=== PATIENT | male | born 1970 | race Caucasian/White ===

== ENCOUNTER 2025-09-21 14:51 | Outpatient (AMB) | payer OTHER, SELFPAY ==
--- NOTE | 2025-09-21 14:56 | MHC.OFFVIS ---
Vital Signs 09/21/25 14:59 Height 5 ft 10 in Weight 345 lb BMI 49.5 BP 116/80 Blood Pressure Location Rt brachial Respiration 16 Pulse 88 Pulse Oximetry (%) 98 Oxygen Delivery Method Room Air Intake Visit Reasons: 6m prev [facility] patient concussion/headache Allergies No Known Allergies Allergy (Verified 09/21/25 15:08) Medication List - Last Reconciled 09/21/25 by Jessica Masterson CNP amitriptyline 100 mg PO BEDTIME 90 days amlodipine 10 mg PO DAILY aspirin 81 mg PO DAILY atorvastatin 20 mg PO DAILY empagliflozin (Jardiance) 10 mg PO DAILY galcanezumab-gnlm (Emgality Pen) 120 mg subcut QMONTH sumatriptan succinate 100 mg PO DAILY tirzepatide (Mounjaro) 7.5 mg subcut QWEEK topiramate 100 mg (2 x 50 mg) PO BID 30 days HPI Comments Details: Ilan is a 55-year-old male patient who follows in the clinic for headache. According to Ilan, he had a head injury approximately 6 years ago after tripping on a box leaving his house. He fell forward hitting his head on a basketball pole and then hit his head on cement. He denies loss of consciousness at the time though after the event had difficulty standing and imbalance. He went to the emergency room for evaluation in the overall impression by the provider who saw him was that he had a concussion. He was out of work for approximately 3 months after the event and continued to have significant light and sound sensitivity as well as dizziness with occasional vomiting. Prior to his fall about 6 years ago, he did not have any headaches. He notes that he has had several concussions over the years even prior to this. He experiences some forgetfulness and cognitive slowing and he relies on notes heavily. He also notes that he has some mood changes especially when his headaches are more severe noted that he is very irritable and becomes very easily agitated because of his pain. He has been on topiramate 100 mg twice daily for many years and has also been taking amitriptyline 100 mg nightly for quite some time as well. He does note that without the amitriptyline he has significant difficulty sleeping. He does have a long history of insomnia. He also has a history of VAL. He was diagnosed with a SA at approximately age 18. He has been getting his CPAP equipment on [employer] and has not had any formal sleep study since approximately age 18. He tells me that he drinks plenty of water and avoids alcohol or other substances. He does not smoke tobacco. Currently headaches are weekly lasting 4-6hours starting with neck pain and then escalating into pain in his fontal region. His pain is archie, dull, aching, and throbbing and is associated with nausea, light, and sound sensitivity. Headaches often arise when he is very busy at work. Past workup: CT brain -normal EEG 2023- normal EEG 2022- Mild bilateral sharp theta discharges His primary care provider recently started him on Emgality injections. He reports that since starting on the Emgality approximately 2 months ago, he has experienced a near 75% reduction in his headaches. He does continue on the topiramate 100 mg twice daily and amitriptyline 100 mg nightly as well. He again reiterates how he feels that during the day he has cognitive slowing and difficulty with concentrating especially at work. Physical Exam Vital Signs: Last Vital Signs Pulse 88 09/21/25 14:59 Resp 16 09/21/25 14:59 BP 116/80 09/21/25 14:59 Pulse Ox 98 09/21/25 14:59 Oxygen Delivery Method Room Air 09/21/25 14:59 BMI result Body Mass Index 49.5 Assessment & Plan Assessment & Plan (1) Migraine without aura and without status migrainosus, not intractable: Code(s): G43.009 - Migraine without aura, not intractable, without status migrainosus Category: Medical (2) Post concussion syndrome: Code(s): F07.81 - Postconcussional syndrome Category: Medical (3) Post-concussion headache: Code(s): G44.309 - Post-traumatic headache, unspecified, not intractable Category: Medical Plan Ilan is a 55-year-old male patient who follows in the clinic for headache in presumed postconcussive syndrome. He has been managed on topiramate 100 mg twice daily and amitriptyline 100 mg nightly for many years but without substantial improvements in his headaches. More recently, primary care started him on Emgality injections and he is seen a near 75% improvement in his headaches since starting. He does still continue on topiramate 100 mg twice daily and amitriptyline 100 mg nightly. He does note that the amitriptyline helps him to sleep. I am however concerned that the topiramate is playing a role in his cognitive slowing and difficulty concentrating. He may at this point also not require these high doses of topiramate especially if Emgality is working well. We will slowly taper down on his topiramate to a goal dose of 50 mg in the morning and 100 mg in the evening until his next visit. I would ultimately like to see him off of the topiramate entirely though we will accomplish this slowly because he has been on it for many years. We also discussed consideration of a repeat sleep study as he has not had 1 since age 18 and also we discussed potentially utilization of physical therapy techniques which may benefit his headaches as well. -Continue Emgality -taper topiramate slowly to a goal dose of 50mg am and 100mg pm until nect visit -consider repeat sleep study and PT -Follow-up in 1 month Medications: New topiramate 100 mg (2 x 50 mg) PO BID 120 tabs 5RF 30 days Coding Level of Care Code Est Pt Level 4 (43367) Diagnoses Migraine without aura and without status migrainosus, not intractable G43.009 Post concussion syndrome F07.81 Post-concussion headache G44.309
[2025-09-21 14:59] VITALS: BP 116/80; PULSE 88; RESP 16; O2SAT 98; BMI 49.5
--- OUTSIDE RECORDS SUMMARY | 2025-09-21 19:15 | XMS_ITS | Clinical Summary ---
Author Organization [facility] Address [address] [place] [phone] Phone Care Team Providers Care Engineering Technologist Name Role Phone Blossom Coreas MD Primary Care Provider [phone] Allergies Active Allergy Reactions Criticality Noted Date Comments Cephalexin 10/09/2020 Lisinopril 02/25/2025 Tomato 02/25/2025 Medications No known medications Medical History Medical History Date Comments Hypertension DX:Hypertension Sleep apnea DX:Sleep apnea Calculus of kidney DX:Calculus o f kidney Concussion DX:Concussion Elevated random blood glucose level DX:Elevated random blood glucose level Cervical strain DX:Cervical stra in Left knee DJD DX:Left knee DJD Diverticulitis DX:Diverticuliti s Sleep apnea DX:Sleep apnea Venous insufficiency DX:Venous i nsufficiency Social History Tobacco Use Types Packs/Day Years Used Date Smoking Tobacco: Never Smokeless Tobacco: Never Alcohol Use Standard Drinks/Week Comments No 0 (1 standard drink = 0.6 oz pur e alcohol) Sex and Gender Information Value Date Recorded Sex Assigned at Male 02/25/2025 10:55 AM EDT Legal Sex Male 7:57 PM EST Gender Identity Male 02/25/2025 10:55 AM EDT Sexual Orientation Straight 02/25/2025 10 :55 AM EDT Obstetrics History Last Filed Vital Signs Vital Sign Reading Time Taken Comments Blood Pressure 151/86 03/22/2025 9:53 PM EDT Pulse 83 03/22/2025 9:53 PM EDT Temperature 37 C (98.6 F) 03/22/2025 5:59 PM EDT Respiratory Rate 20 03/22/2025 9:53 PM EDT Oxygen Saturation 95% 03/22/2025 9:53 PM EDT Inhaled Oxygen Concentration - - Weight 161 kg (354 lb) 03/22/2025 5:59 PM EDT Height 177.8 cm (5' 10 ) 03/22/2025 5:59 PM EDT Body Mass Index 50.79 03/22/2025 5:59 PM EDT Plan of Treatment Health Maintenance Due Date Last Done Comments Colorectal Cancer Screening: Colonoscopy 1970 DTaP,Tdap,and Td Vaccines (1 - Tdap) 1989 Hepatitis B Vaccines (1 of 3 - 19+ 3-dose series) 1989 Pneumococcal Vaccine: 50+ Years (1 of 1 - PCV) 2020 RSV Immunization Adult Patients (1 - Risk 50-74 years 1-dose series) 2020 Zoster Vaccines (1 of 2) 2020 Cholesterol Screening (Lipid Panel) 10/26/2022 HIV Screening 10/26/2022 Hepatitis C Screening 10/26/2022 Social Influencers of Health Screening 10/26/2022 Depression Screening 11/24/2024 COVID-19 Vaccine (4 - 2024-2 6 season) 2025 11/10/2021, 01/08/2021, 12/13/2020 Influenza Vaccine (#1) 2025 3, 10/17/2021 HIB Vaccines Aged Out No longer eligi ble based on patient's age to complete this topic HPV Vaccines Aged Out No longer eligi ble based on patient's age to complete this topic Hepatitis A Vaccines Aged Out No long er eligible based on patient's age to complete this topic IPV Vaccines Aged Out No longer eligi ble based on patient's age to complete this topic MMR Vaccines Aged Out No longer eligi ble based on patient's age to complete this topic Meningococcal ACWY Vaccine Aged Out N o longer eligible based on patient's age to complete this topic Meningococcal B Vaccine Aged Out No l onger eligible based on patient's age to complete this topic RSV Immunization Patients Under 20 months Aged Out No longer eligible b ased on patient's age to complete this topic Varicella Vaccines Aged Out No longer eligible based on patient's age to complete this topic Insurance [facility] Advance Directives Documents on File Type Date Recorded Patient Emergency Medical Service Manager Expl anation Health Care Decision (hx) 11/30/2014 AD SINCLAIR DIRECTIVE Health Care Decision (hx) 11/30/2014 AD SINCLAIR DIRECTIVE Health Care Decision (hx) 11/30/2014 AD SINCLAIR DIRECTIVE Health Care Decision (hx) 11/30/2014 AD SINCLAIR DIRECTIVE Health Care Decision (hx) 11/30/2014 AD SINCLAIR DIRECTIVE Health Care Decision (hx) 11/30/2014 AD SINCLAIR DIRECTIVE Health Care Decision (hx) 11/30/2014 AD SINCLAIR DIRECTIVE Health Care Decision (hx) 11/30/2014 AD SINCLAIR DIRECTIVE Health Care Decision (hx) 11/30/2014 AD SINCLAIR DIRECTIVE Health Care Decision (hx) 11/30/2014 AD SINCLAIR DIRECTIVE Health Care Decision (hx) 11/30/2014 AD SINCLAIR DIRECTIVE Health Care Decision (hx) 11/25/2014 AD SINCLAIR DIRECTIVE Health Care Decision (hx) 11/25/2014 AD SINCLAIR DIRECTIVE Health Care Decision (hx) 11/25/2014 AD SINCLAIR DIRECTIVE Health Care Decision (hx) 11/25/2014 AD SINCLAIR DIRECTIVE Health Care Decision (hx) 11/25/2014 AD SINCLAIR DIRECTIVE Health Care Decision (hx) 11/25/2014 AD SINCLAIR DIRECTIVE Health Care Decision (hx) 11/25/2014 AD SINCLAIR DIRECTIVE Health Care Decision (hx) 11/25/2014 AD SINCLAIR DIRECTIVE Health Care Decision (hx) 11/25/2014 AD SINCLAIR DIRECTIVE Health Care Decision (hx) 11/25/2014 AD SINCLAIR DIRECTIVE Health Care Decision (hx) 11/25/2014 AD SINCLAIR DIRECTIVE Care Teams Engineering Technologist Relationship Specialty Start Date End Date Blossom Coreas MD [address] [place] [address] [place] [address] [facility] - General 01/20/24
--- OUTSIDE RECORDS SUMMARY | 2025-09-21 19:16 | XMS_ITS | Patient Health Record ---
[facility] Address [address] [place] [address] Care Team Providers Care Process Coach Name Role Phone SHOLA COREAS Unavailable [phone] ANDRAE YANEZ Unavailable [phone] Allergies Allergen (clinical drug ingredient) Drug/Non Drug Allergy documented on EMR Reaction Allergy Type Onset Date Status lisinopril Lisinopril angioedema Drug Allergy Acti ve doxycycline Doxycycline rash Drug Allergy Act ravinder Results Component Value Reference Range Notes EKG Reviewed date:09/09/2025 12:13:17 PM Interpretation: Performing Lab: Notes/Report: ECGDiastolicBP 72 ECGHr 68 ECGPRInterval 164 ECGPWaveAxis 46 ECGQRSDuration 86 ECGQrsWaveAxis 37 ECGQTcInterval 384 ECGQTInterval 370 ECGSystolicBP 130 ECGTWaveAxis 42 RR_DiastolicBP 0 RR_MaxRRInterval 0 RR_MeanHR 0 RR_MeanRRInterval 0 RR_MinRRInterval 0 RR_NumBeats 0 RR_NumNormalBeats 0 RR_SystolicBP 0 B-TYPE NATRIURETIC PEPTIDE Reviewed date:03/23/2025 08:36:05 AM Interpretation: Performing Lab: Notes/Report: BNP 8 <=100 pcg/mL Urinalysis, Complete-[id number] Reviewed date:02/23/2025 08:08:09 AM Interpretation: Performing Lab:[facility], [address] [facility], [place], Phone - [phone], Director - Mark Notes/Report: Specific Graff 1.027 1.005-1.030 pH 6.5 5.0-7.5 Urine-Color Yellow Yellow Appearance Clear Clear WBC Esterase Negative Negative Protein Trace Negative/Trace Glucose 3+ Negative Ketones Negative Negative Occult Blood 2+ Negative Bilirubin Negative Negative Urobilinogen,Semi-Qn 1.0 0.2-1.0 mg/dL Nitrite, Urine Negative Negative Microscopic Examination See below: Micr oscopic was indicated and was performed. WBC None seen 0 - 5 /hpf RBC >30 0 - 2 /hpf Epithelial Cells (non renal) None seen 0 - 10 /hpf Casts None seen None seen /lpf Bacteria None seen None seen/Few PSA Total+% Free-[id number] Reviewed date:02/22/2025 08:14:00 AM Interpretation: Performing Lab:[facility], [address] [facility], [place], Phone - [phone], Director - Mark Notes/Report: Prostate Specific Ag 3.0 0.0-4.0 ng/mL [facility]idan ECLIA methodology. . According to the [place] [employer], Serum PSA should decrease and remain at undetectable levels after radical prostatectomy. The AUA defines biochemical recurrence as an initial PSA value 0.2 ng/mL or greater followed by a subsequent confirmatory PSA value 0.2 ng/mL or greater. Values obtained with different assay methods or kits cannot be used interchangeably. Results cannot be interpreted as absolute evidence of the presence or absence of malignant disease. PSA, Free 0.67 N/A ng/mL Aidan ECLIA met hodology. % Free PSA 22.3 The table below lists the probability of prostate cancer for men with non-suspicious RM results and total PSA between 4 and 10 ng/mL, by patient age (Steffanie et al, HEATHER 1998, 279:1542). % Free PSA 50-64 yr 65-75 yr 0.00-10.00% 56% 55% 10.01-15.00% 24% 35% 15.01-20.00% 17% 23% 20.01-25.00% 10% 20% >25.00% 5% 9% Please note: Steffnaie et al did not make specific recommendations regarding the use of percent free PSA for any other population of men. Comp. Metabolic Panel (14)-3 [id number] Reviewed date:02/22/2025 08:14:00 AM Interpretation: Performing Lab:[facility], [address] [facility], Phone - [phone], Director - Mark Notes/Report: Glucose 151 70-99 mg/dL BUN 12 6-24 mg/dL Creatinine 1.14 0.76-1.27 mg/dL eGFR 76 >59 mL/min/1.73 BUN/Creatinine Ratio 11 9-20 Sodium 142 134-144 mmol/L Potassium 3.8 3.5-5.2 mmol/L Chloride 104 96-106 mmol/L Carbon Dioxide, Total 22 20-29 mmol/L Calcium 9.3 8.7-10.2 mg/dL Protein, Total 7.1 6.0-8.5 g/dL Albumin 4.4 3.8-4.9 g/dL Globulin, Total 2.7 1.5-4.5 g/dL Bilirubin, Total 0.8 0.0-1.2 mg/dL Alkaline Phosphatase 109 44-121 IU/L AST (SGOT) 16 0-40 IU/L ALT (SGPT) 20 0-44 IU/L Lipid Panel-[id number] Reviewed date:02/22/2025 08:14:00 AM Interpretation: Performing Lab:[facility], [address] [facility], Phone - [phone], Director - Mark Notes/Report: Cholesterol, Total 122 100-199 mg/dL Triglycerides 71 0-149 mg/dL HDL Cholesterol 54 >39 mg/dL VLDL Cholesterol Basil 15 5-40 mg/dL LDL Chol Calc (NIH) 53 0-99 mg/dL Vitamin D, 86-Bueiihz-[id number] Reviewed date:02/22/2025 08:12:34 AM Interpretation: Performing Lab:[facility], [address] [facility], Phone - [phone], Director - Mark Notes/Report: Vitamin D, 25-Hydroxy 21.1 30.0-100.0 ng/mL Vitamin D deficiency has been defined by the [place] of Medicine and an Endocrine Society practice guideline as a level of serum 25-OH vitamin D less than 20 ng/mL (1,2). The Endocrine Society went on to further define vitamin D insufficiency as a level between 21 and 29 ng/mL (2). 1. IOM ([place] of Medicine). 2010. Dietary reference intakes for calcium and D. [place]: The National Academies Press. 2. Josseline MUNOZ, Oscar HERNÁNDEZ, Marifer CANO, et al. Evaluation, treatment, and prevention of vitamin D deficiency: an Endocrine Society clinical practice guideline. JCEM. 2010; 96(5):1911-30. CBC With Differential/Platel et-[id number] Reviewed date:02/22/2025 08:12:44 AM Interpretation: Performing Lab:[facility] [place], [address] [place] [address], Phone - [phone], Director - Mark Notes/Report: WBC 7.1 3.4-10.8 x10E3/uL RBC 5.48 4.14-5.80 x10E6/uL Hemoglobin 16.1 13.0-17.7 g/dL Hematocrit 47.5 37.5-51.0 % MCV 87 79-97 fL MCH 29.4 26.6-33.0 pg MCHC 33.9 31.5-35.7 g/dL RDW 13.4 11.6-15.4 % Platelets 256 150-450 x10E3/uL Neutrophils 73 Not Estab. % Lymphs 18 Not Estab. % Monocytes 6 Not Estab. % Eos 2 Not Estab. % Basos 1 Not Estab. % Neutrophils (Absolute) 5.2 1.4-7.0 x10E3/uL Lymphs (Absolute) 1.3 0.7-3.1 x10E3/uL Monocytes(Absolute) 0.4 0.1-0.9 x10E3/uL Eos (Absolute) 0.2 0.0-0.4 x10E3/uL Baso (Absolute) 0.1 0.0-0.2 x10E3/uL Immature Granulocytes 0 Not Estab. % Immature Grans (Abs) 0.0 0.0-0.1 x10E3/uL TSH-[id number] Reviewed date:02/22/2025 08:14:00 AM Interpretation: Performing Lab:[facility], [address] [place] [address], [place], Phone - [phone], Director - Mark Notes/Report: TSH 0.986 0.450-4.500 uIU/mL Urinalysis, Complete-[id number] Reviewed date:02/22/2025 08:14:00 AM Interpretation: Performing Lab:[facility], [address] [place] [address], [place], Phone - [phone], Director - [facility] Notes/Report: Specific Graff TNP Test not performed. Patient was unable to provide a self-collected specimen for the requested testing. The following test(s) were not performed: pH TNP Test not perfor med Protein TNP Test not perfor med Glucose TNP Test not perfor med Ketones TNP Test not perfor med Vitamin [id number] Reviewed date:02/22/2025 08:14:00 AM Interpretation: Performing Lab:[facility], [address] [place] [address], Phone - [phone], Director - [facility] Notes/Report: Vitamin B12 014 087-5884 pg/mL Request Problem TNP Test not performed. Patient was unable to provide a self-collected specimen for the requested testing. The following test(s) were not performed: TEST: [id number] Urinalysis, Complete Hemoglobin [id number] Reviewed date:02/22/2025 08:12:39 AM Interpretation: Performing Lab:[facility], [address] [place] [address], Phone - [phone], Director - [facility] Notes/Report: Hemoglobin A1c 6.5 4.8-5.6 % . Prediabetes: 5.7 - 6.4 Diabetes: >6.4 Glycemic control for adults with diabetes: <7.0 Comp. Metabolic Panel (14)-3 Reviewed date:08/29/2025 08:03:53 AM Interpretation: Performing Lab:[facility], [address] [place] [address], Phone - [phone], Director - [facility] Notes/Report: Glucose 162 70-99 mg/dL BUN 12 6-24 mg/dL Creatinine 1.16 0.76-1.27 mg/dL eGFR 74 >59 mL/min/1.73 BUN/Creatinine Ratio 10 9-20 Sodium 142 134-144 mmol/L Potassium 4.1 3.5-5.2 mmol/L Chloride 107 96-106 mmol/L Carbon Dioxide, Total 22 20-29 mmol/L Calcium 9.1 8.7-10.2 mg/dL Protein, Total 6.5 6.0-8.5 g/dL Albumin 4.2 3.8-4.9 g/dL Globulin, Total 2.3 1.5-4.5 g/dL Bilirubin, Total 0.6 0.0-1.2 mg/dL Alkaline Phosphatase 117 47-123 IU/L AST (SGOT) 16 0-40 IU/L ALT (SGPT) 16 0-44 IU/L Lipid Panel-[id number] Reviewed date:08/29/2025 08:04:03 AM Interpretation: Performing Lab:[facility], Phone - [phone], Director - Mark Notes/Report: Cholesterol, Total 122 100-199 mg/dL Triglycerides 64 0-149 mg/dL HDL Cholesterol 57 >39 mg/dL VLDL Cholesterol Basil 14 5-40 mg/dL LDL Chol Calc (NIH) 51 0-99 mg/dL TSH+Free [id number] Reviewed date:08/29/2025 08:04:03 AM Interpretation: Performing Lab:[facility], Phone - [phone], Director - Mark Notes/Report: TSH 0.976 0.450-4.500 uIU/mL T4,Free(Direct) 1.05 0.82-1.77 ng/dL Albumin/Creatinine Ratio,Uri ne-[id number] Reviewed date:08/29/2025 08:04:03 AM Interpretation: Performing Lab:[facility], Phone - [phone], Director - Mark Notes/Report: Creatinine, Urine 86.3 Not Estab. mg/dL Albumin, Urine 8.5 Not Estab. ug/mL Alb/Creat Ratio 10 0-29 mg/g creat Normal: 0 - 29 Moderately increased: 30 - 300 Severely increased: >300 Triiodothyronine (T3), Free- [id number] Reviewed date:08/29/2025 08:04:03 AM Interpretation: Performing Lab:[facility] [address], Phone - [phone], - Mark Notes/Report: Triiodothyronine (T3), Free 3.1 2.0-4.4 pg/mL Prostate-Specific Ag-[id number] Reviewed date:08/29/2025 08:04:03 AM Interpretation: Performing Lab:[facility], Phone - [phone], Director - Mark Notes/Report: Prostate Specific Ag 3.0 0.0-4.0 ng/mL [facility] ECLIA methodology. . According to the [place] [employer], Serum PSA should decrease and remain at undetectable levels after radical prostatectomy. The AUA defines biochemical recurrence as an initial PSA value 0.2 ng/mL or greater followed by a subsequent confirmatory PSA value 0.2 ng/mL or greater. Values obtained with different assay methods or kits cannot be used interchangeably. Results cannot be interpreted as absolute evidence of the presence or absence of malignant disease. CBC With Differential/Platel et-[id number] Reviewed date:08/29/2025 08:04:03 AM Interpretation: Performing Lab:[facility] [place], [address] [facility], Phone - [phone], Director - [facility] Notes/Report: WBC 5.4 3.4-10.8 x10E3/uL RBC 5.21 4.14-5.80 x10E6/uL Hemoglobin 15.1 13.0-17.7 g/dL Hematocrit 45.6 37.5-51.0 % MCV 88 79-97 fL MCH 29.0 26.6-33.0 pg MCHC 33.1 31.5-35.7 g/dL RDW 13.1 11.6-15.4 % Platelets 242 150-450 x10E3/uL Neutrophils 62 Not Estab. % Lymphs 27 Not Estab. % Monocytes 7 Not Estab. % Eos 3 Not Estab. % Basos 1 Not Estab. % Neutrophils (Absolute) 3.3 1.4-7.0 x10E3/uL Lymphs (Absolute) 1.5 0.7-3.1 x10E3/uL Monocytes(Absolute) 0.4 0.1-0.9 x10E3/uL Eos (Absolute) 0.2 0.0-0.4 x10E3/uL Baso (Absolute) 0.0 0.0-0.2 x10E3/uL Immature Granulocytes 0 Not Estab. % Immature Grans (Abs) 0.0 0.0-0.1 x10E3/uL Urinalysis, Complete-[id number] Reviewed date:08/29/2025 08:04:03 AM Interpretation: Performing Lab:[facility] [place], [address] [facility], [place], Phone - [phone], Director - Faizay Notes/Report: Specific Graff 1.029 1.005-1.030 pH 7.0 5.0-7.5 Urine-Color Yellow Yellow Appearance Clear Clear WBC Esterase Negative Negative Protein Trace Negative/Trace Glucose 3+ Negative Ketones Negative Negative Occult Blood Negative Negative Bilirubin Negative Negative Urobilinogen,Semi-Qn 1.0 0.2-1.0 mg/dL Nitrite, Urine Negative Negative Microscopic Examination Micr oscopic follows if indicated. Microscopic Examination See below: Micr oscopic was indicated and was performed. WBC 0-5 0 - 5 /hpf RBC None seen 0 - 2 /hpf Epithelial Cells (non renal) None seen 0 - 10 /hpf Casts None seen None seen /lpf Bacteria None seen None seen/Few CA [id number] Reviewed date:08/29/2025 08:04:03 AM Interpretation: Performing Lab:[facility], Phone - [phone], Director - [facility] Notes/Report: CA 19-9 30 0-35 U/mL [facility] [employer] Electrochemiluminescence Immunoassay (ECLIA) . Values obtained with different assay methods or kits cannot be used interchangeably. Results cannot be interpreted as absolute evidence of the presence or absence of malignant disease. Vitamin [id number] Reviewed date:08/29/2025 08:04:03 AM Interpretation: Performing Lab:[facility], Phone - [phone], Director - Mark Notes/Report: Vitamin B12 148 615-0145 pg/mL Hemoglobin [id number]-[id number] Reviewed date:08/29/2025 08:04:03 AM Interpretation: Performing [facility] [address] [place] [address], Phone - [phone], Director - guillermina Notes/Report: Hemoglobin A1c 7.7 4.8-5.6 % . Prediabetes: 5.7 - 6.4 Diabetes: >6.4 Glycemic control for adults with diabetes: <7.0 Lipase-[id number] Reviewed date:08/29/2025 08:04:03 AM Interpretation: Performing Lab:[facility] [address] [place] [address], Phone - [phone], Director - Mark Notes/Report: Lipase 22 13-78 U/L Amylase-[id number] Reviewed date:08/29/2025 08:04:03 AM Interpretation: Performing Lab:[facility] [place], [address], [place], Phone - [phone], Director - Mark Notes/Report: Amylase 56 31-110 U/L Reason For Referral No Information Medications Medication SIG (Take, Route, Frequency, Duration) Notes Start Date End Date Status Atorvastatin Calcium 40 MG 1 tablet Orally Once a day change from 20mg to 40mg Active EPINEPHrine 0.3 MG/0.3ML as directed for allergic reaction Injection as needed; Duration: 30 days 11/21/2021 Active Emgality 120 MG/ML INJECT 1 ML INTO THE SKIN MONTHLY; Duration: 30 Active Topiramate 100 MG 1 tablet Orally twic e a day Active Torsemide 20 MG TAKE 1 TABLET BY MOUTH EVERY DAY; Duration: 90 Active Jardiance 10 MG TAKE 1 TABLET BY MOUTH EVERY DAY; Duration: 90 Active Amitriptyline HCl 100 MG TAKE 1 TABLET BY MOUTH EVERY DAY AT BEDTIME; Duration: 90 Active amLODIPine Besylate 10 MG TAKE 1 TABLET BY MOUTH EVERY DAY; Duration: 90 Active Aspirin Low Dose 81 MG TAKE 1 TABLET BY MOUTH EVERY DAY; Duration: 90 Active Lotrimin Ultra 1 % 1 application Externally Twice a day; Duration: 7 day(s) Active Doxycycline Hyclate 100 MG 1 tablet Orally every 12 hrs; Duration: 10 day(s) Active Cephalexin 750 MG 1 capsule Orally every 6 hrs; Duration: 7 days Active Mounjaro 7.5 MG/0.5ML 7.5 mg Subcutaneou s weekly; Duration: 30 days Active Social History Tobacco Use: Social History Observation Description Date Details (start date - stop date) Never Smoker NA - NA Tobacco Use/Smoking Question Answer Notes Are you a nonsmoker Section Notes: Tob: Never ETOH: [facility] Tob: Never ETOH: [facility] Tob: Never ETOH: [facility] Tob: Never ETOH: [facility] Tob: Never ETOH: [facility] Tob: Never ETOH: [facility] Problems Problem Type SNOMED Code ICD Code Onset Dates Problem Status W/U Status Risk Notes Problem Disorder due to type 2 diabetes mellitus (195457621) Type 2 diabetes mellitus with unspecified complications (E11.8) Active confirmed Problem Vitamin D deficiency (15192762) Vitamin D deficiency, unspecified (E55.9) Active confirmed Problem Morbid obesity (disorder) (676831578) Morbid (severe) obesity due to excess calories (E66.01) Active confirmed Problem Essential hypertension (98729429) Essential (primary) hypertension (I10) Active confirmed Problem Morbid obesity (231402196) Morbid obesity (E66.01) Active confirmed Problem Diverticulitis (30041843) Diverticulitis (K57.92) Active confirmed Problem Acquired hypothyroidism (534086843) Acquired hypothyroidism (E03.9) Active confirmed Problem Hyperlipoproteinemia (5102763) Acquired hyperlipoproteinemia (E78.5) Active confirmed Problem Adult health examination (423294233) Adult general medical exam (Z00.00) Active confirmed Problem Vitamin D deficiency (55587898) Vitamin D deficiency (E55.9) Active confirmed Problem Vitamin A deficiency (86101164) Vitamin A deficiency (E50.9) Active confirmed Problem Nephrolithiasis (37089502) Nephrolithiasis (N20.0) Active confirmed Problem Body mass index 40+ - morbidly obese (200667174) Body mass index [BMI] 50.0-59.9, adult (Z68.43) Active confirmed Problem Body mass index 30+ - obesity (finding) (400497355) Body mass index [BMI] 60.0-69.9, adult (Z68.44) Active confirmed Problem Migraine with aura (1462108) Migraine with aura and without status migrainosus, not intractable (G43.109) Active confirmed Problem Vitamin B>12< deficiency anaemia (43888019) Anemia due to vitamin B12 deficiency, unspecified B12 deficiency type (D51.9) Active confirmed Problem Stress (77057280) Stress (F43.9) Active confirm ed Problem Type II diabetes mellitus without complication (072255948) New onset type 2 diabetes mellitus (E11.9) Active confirmed Problem Ascending aorta dilatation (738516941) Ascending aorta dilatation (I77.810) Active confirmed Problem Abnormal metabolic state due to diabetes mellitus (236389742) Abnormal metabolic state due to diabetes mellitus (E11.9) Active confirmed Problem Elevated fasting lipid profile (432237687598) Elevated lipids (E78.5) Active confirmed Problem Screening for malignant neoplasm of prostate (612537673) Encounter for prostate cancer screening (Z12.5) Active confirmed Problem Hypothyroid (83225648) Hypothyroid (E03.9) Active confirmed Vital Signs Heart Rate 83 /min 09/09/2025 Oximetry 99 % 09/09/2025 Blood pressure diastolic 72 mm Hg 09/09/2025 Height 68 in 09/09/2025 Blood pressure systolic 130 mm Hg 09/09/2025 Weight 343.6 lbs 09/09/2025 BMI 52.24 kg/m2 09/09/2025 Encounters Encounter Location Date Provider Diagnosis [facility] [address] [place] [address] 11/26/2024 ANDRAE YANEZ Type 2 diabetes maurice itus with unspecified complications E11.8 ; Migraine with aura and without status migrainosus, not intractable G43.109 and Essential (primary) hypertension I10 [facility] [address] [place] [address] 02/25/2025 ANDRAE YANEZ Right lower quadrant abdominal pain R10.31 ; Back pain without radiation M54.9 and Elevated blood pressure reading R03.0 [facility] [address] [place] [address] 03/29/2025 ANDRAE YANEZ Electrocution, seque la T75.4XXS ; Nephrolithiasis N20.0 and Migraine with aura and without status migrainosus, not intractable G43.109 [facility] [address] [place] [address] 05/31/2025 ANDRAE YANEZ Type 2 diabetes maurice itus with unspecified complications E11.8 ; Migraine with aura and without status migrainosus, not intractable G43.109 ; Essential (primary) hypertension I10 ; Encounter for examination of blood pressure without abnormal findings Z01.30 and Acquired hyperlipoproteinemia E78.5 [facility] [address] [place] [address] 09/09/2025 ANDRAE YANEZ Encounter for screen ing for cardiovascular disorders Z13.6 ; Type 2 diabetes mellitus with unspecified complications E11.8 ; Migraine with aura and without status migrainosus, not intractable G43.109 ; Essential (primary) hypertension I10 ; Encounter for examination of blood pressure without abnormal findings Z01.30 and Acquired hyperlipoproteinemia E78.[address] [address] 09/28/2024 ANDRAE YANEZ [facility] [address] [place] [address] 11/26/2024 ANDRAE YANEZ [facility] [address] [place] [address] [place] [address] 08/01/2025 SHOLA COREAS [facility] [address] [place] [address] 08/12/2025 ANDRAE YANEZ Family history of pa ncreatic cancer Z80.[address] [address] [place] 08/25/2025 ANDRAE YANEZ [facility] [address] [place], [place] 09/21/2025 ANDRAE YANEZ Assessments Encounter Date Diagnosis (ICD Code) Assessment Notes Treatment Notes Treatment Clinical Notes Section Notes 11/26/2024 Type 2 diabetes mellitus with unspecified complications (ICD-10 - E11.8) 54 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 Complement levels normal. Suspect due to soap, pt limited. Has epi pen # Migraine headache. Pt reports hx of migarines, followed by Dr. De La Cruz in the past. Started on Emgality with improvement, but having break thru headaches. Has appt with [facility] # Stress. dx of breast cancer 2 months ago. Pt adjusting poorly to diagnosis. # HTN: Improved with increase of amlodipine to 10 mg #DM: Continue Jardiance. Was on Ozempic, A1C in office increased from 7.1 to 7.3. Due to GI upset, will trial Mounjaro. PA sent for 7.5 mg subcu weekly. # Morbid obesity: Diet and exercise encouraged at length. See above Case discussed with collaborating physician Samule Coreas who reviewed the assessment and plan. Chart, medications, labs, vital signs reviewed. Dictation was accomplished with the use of Qianmi voice recognition software, prone to medical misidentifications and grammatical errors. This is unintentional and the practitioner does try to identify and correct these, but some could still be present. Please do not hesitate to contact practitioner for clarification. All quetsions answered to patients satisfaction. Patient verbalized understanding of diagnosis and treatments explained. To call sooner prior to next visit it any questions/concerns arise. 02/25/2025 Right lower quadrant abdominal pain (ICD-10 - R10.31) # Right lower quadrant abdominal pain. High suspicion for appendicitis, given that he has localized McBurney's point tenderness. Concern for possible rupture, given length of time patient has been having discomfort. Patient is not febrile in the office however does have an elevated blood pressure. We discussed the etiologies of appendicitis, and the fact that he still has his appendix, with his symptoms, I am concerned. Patient was educated to go to the emergency room. Patient is agreeable. Call was placed over to [facility] ER for evaluation. #Back pain. Suspect this is secondary to #1. Patient also could have kidney stones given that he is on topiramate for chronic migraines. #Elevated blood pressure. Patient is on antihypertensive however I do believe pain is contributing to elevated blood pressure reading today. Case discussed with collaborating physician Sondra Coreas who reviewed the assessment and plan. Chart, medications, labs, vital signs reviewed. Dictation was accomplished with the use of Qianmi voice recognition software, prone to medical misidentifications and grammatical errors. This is unintentional and the practitioner does try to identify and correct these, but some could still be present. Please do not hesitate to contact practitioner for clarification. All questions answered to patients satisfaction. Patient verbalized understanding of diagnosis and treatments explained. To call sooner prior to next visit it any questions/concerns arise. 02/25/2025 Back pain without radiation (ICD-10 - M54.9) # Right lower quadrant abdominal pain. High suspicion for appendicitis, given that he has localized McBurney's point tenderness. Concern for possible rupture, given length of time patient has been having discomfort. Patient is not febrile in the office however does have an elevated blood pressure. We discussed the etiologies of appendicitis, and the fact that he still has his appendix, with his symptoms, I am concerned. Patient was educated to go to the emergency room. Patient is agreeable. Call was placed over to [facility] ER for evaluation. #Back pain. Suspect this is secondary to #1. Patient also could have kidney stones given that he is on topiramate for chronic migraines. #Elevated blood pressure. Patient is on antihypertensive however I do believe pain is contributing to elevated blood pressure reading today. Case discussed with collaborating physician Sondra Coreas who reviewed the assessment and plan. Chart, medications, labs, vital signs reviewed. Dictation was accomplished with the use of Qianmi voice recognition software, prone to medical misidentifications and grammatical errors. This is unintentional and the practitioner does try to identify and correct these, but some could still be present. Please do not hesitate to contact practitioner for clarification. All questions answered to patients satisfaction. Patient verbalized understanding of diagnosis and treatments explained. To call sooner prior to next visit it any questions/concerns arise. 03/29/2025 Electrocution, [place] (ICD-10 - T75.4XXS) # Electrocution. Patient sustained an electrocution on 03/22/2025. Patient did have overall normal labs, with residual pain in his right median nerve distribution. Patient reports this is gradually gotten better over the past week. He reports somewhat increased pain at night. We discussed options including short-term gabapentin to relax the nerves. We discussed that this can take up to 6 months to a year to fully regain neurologic function, as well as sensation back in this area. Patient verbalizes understanding. Patient reports ice packs have been helping in the discomfort of the area. #Nephrolithiasis. Patient has a remote history of nephrolithiasis back in his 30s. Patient states that he has not had kidney stones in quite some time, with no doses of Topamax changed, increased or decreased. We discussed that Topamax does carry the risk of kidney stones. Patient reports headaches have been exquisitely controlled, therefore does not want a change at this time. We discussed that if recurrent kidney stones happen again, we will have to trial him off of Topamax and lower the dose and eventually taper off. Patient verbalized understanding. # Migraines: Been well-controlled at this time with Emgality, Topamax and amitriptyline. Case discussed with collaborating physician Sondra Coreas who reviewed the assessment and plan. Chart, medications, labs, vital signs reviewed. Dictation was accomplished with the use of Qianmi voice recognition software, prone to medical misidentifications and grammatical errors. This is unintentional and the practitioner does try to identify and correct these, but some could still be present. Please do not hesitate to contact practitioner for clarification. All questions answered to patients satisfaction. Patient verbalized understanding of diagnosis and treatments explained. To call sooner prior to next visit it any questions/concerns arise. 03/29/2025 Nephrolithiasis (ICD-10 - N20.0) # Electrocution. Patient sustained an electrocution on 03/22/2025. Patient did have overall normal labs, with residual pain in his right median nerve distribution. Patient reports this is gradually gotten better over the past week. He reports somewhat increased pain at night. We discussed options including short-term gabapentin to relax the nerves. We discussed that this can take up to 6 months to a year to fully regain neurologic function, as well as sensation back in this area. Patient verbalizes understanding. Patient reports ice packs have been helping in the discomfort of the area. #Nephrolithiasis. Patient has a remote history of nephrolithiasis back in his 30s. Patient states that he has not had kidney stones in quite some time, with no doses of Topamax changed, increased or decreased. We discussed that Topamax does carry the risk of kidney stones. Patient reports headaches have been exquisitely controlled, therefore does not want a change at this time. We discussed that if recurrent kidney stones happen again, we will have to trial him off of Topamax and lower the dose and eventually taper off. Patient verbalized understanding. # Migraines: Been well-controlled at this time with Emgality, Topamax and amitriptyline. Case discussed with collaborating physician Sondra Coreas who reviewed the assessment and plan. Chart, medications, labs, vital signs reviewed. Dictation was accomplished with the use of Qianmi voice recognition software, prone to medical misidentifications and grammatical errors. This is unintentional and the practitioner does try to identify and correct these, but some could still be present. Please do not hesitate to contact practitioner for clarification. All questions answered to patients satisfaction. Patient verbalized understanding of diagnosis and treatments explained. To call sooner prior to next visit it any questions/concerns arise. 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 Pt reports hx of young, followed by Dr. De La Cruz in the past. Started on Emgality with improvement, but having break thru headaches. Has appt with [facility]. On Topamax, with recurrent kidney stones. Discussed discontinuing, but reports well controlled headaches # HTN: Improved with increase of amlodipine to 10 mg #DM: Continue Jardiance. Currently on Mounarjo 7.5 mg ubscu weekly. Tolerating well. Reports ? Lump on back of neck that disappeared after discontinuing x 2 weeks. # Morbid obesity: Diet and exercise encouraged at length. See above Case discussed with collaborating physician Samuel Coreas who reviewed the assessment and plan. Chart, medications, labs, vital signs reviewed. Dictation was accomplished with the use of Qianmi voice recognition software, prone to medical misidentifications and grammatical errors. This is unintentional and the practitioner does try to identify and correct these, but some could still be present. Please do not hesitate to contact practitioner for clarification. All quetsions answered to patients satisfaction. Patient verbalized understanding of diagnosis and treatments explained. To call sooner prior to next visit it any questions/concerns arise. 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 Pt reports hx of young, followed by Dr. De La Cruz in the past. Started on Emgality with improvement, but having break thru headaches. Has appt with [facility]. On Topamax, with recurrent kidney stones. Discussed discontinuing, but reports well controlled headaches # HTN: Improved with increase of amlodipine to 10 mg #DM: Continue Jardiance. Currently on Mounarjo 7.5 mg ubscu weekly. Tolerating well. Reports ? Lump on back of neck that disappeared after discontinuing x 2 weeks. # Morbid obesity: Diet and exercise encouraged at length. See above Case discussed with collaborating physician Samuel Coreas who reviewed the assessment and plan. Chart, medications, labs, vital signs reviewed. Dictation was accomplished with the use of Qianmi voice recognition software, prone to medical misidentifications and grammatical errors. This is unintentional and the practitioner does try to identify and correct these, but some could still be present. Please do not hesitate to contact practitioner for clarification. All quetsions answered to patients satisfaction. Patient verbalized understanding of diagnosis and treatments explained. To call sooner prior to next visit it any questions/concerns arise. 08/12/2025 Family history of pancreatic cancer (ICD-10 - Z80.0) 09/09/2025 Type 2 diabetes mellitus with unspecified complications (ICD-10 - E11.8) 54 year old M, [employer]) [facility], with 2 daughters # Family history of pancreatic cancer. Brother from metastatic pancreatic cancer, tested positive for the BRCA2 gene. # Migraine headache. Pt reports hx of migarines, followed by Dr. De La Cruz in the past. Started on Emgality with improvement, but having break thru headaches. Has appt with [facility]. On Topamax, with recurrent kidney stones. Discussed discontinuing, but reports well controlled headaches # HTN: Improved with increase of amlodipine to 10 mg #DM: Continue Jardiance. Currently on Mounarjo 7.5 mg ubscu weekly. Tolerating well. Reports ? Lump on back of neck that disappeared after discontinuing x 2 weeks. # Morbid obesity: Diet and exercise encouraged at length. See above Case discussed with collaborating physician Samuel Coreas who reviewed the assessment and plan. Chart, medications, labs, vital signs reviewed. Dictation was accomplished with the use of [employer]mi voice recognition software, prone to medical misidentifications and grammatical errors. This is unintentional and the practitioner does try to identify and correct these, but some could still be present. Please do not hesitate to contact practitioner for clarification. All quetsions answered to patients satisfaction. Patient verbalized understanding of diagnosis and treatments explained. To call sooner prior to next visit it any questions/concerns arise. 11/26/2024 Migraine with aura a nd without status migrainosus, not intractable (ICD-10 - G43.109) 54 year old M, [employer]) at [employer], with 2 daughters #Hx of lip swelling. Complement levels normal. Suspect due to soap, pt limited. Has epi pen # Migraine headache. Pt reports hx of migarines, followed by Dr. De La Cruz in the past. Started on Emgality with improvement, but having break thru headaches. Has appt with [facility] # Stress. dx of breast cancer 2 months ago. Pt adjusting poorly to diagnosis. # HTN: Improved with increase of amlodipine to 10 mg #DM: Continue Jardiance. Was on Ozempic, A1C in office increased from 7.1 to 7.3. Due to GI upset, will trial Mounjaro. PA sent for 7.5 mg subcu weekly. # Morbid obesity: Diet and exercise encouraged at length. See above Case discussed with collaborating physician Samuel Coreas who reviewed the assessment and plan. Chart, medications, labs, vital signs reviewed. Dictation was accomplished with the use of [employer]ianmi voice recognition software, prone to medical misidentifications and grammatical errors. This is unintentional and the practitioner does try to identify and correct these, but some could still be present. Please do not hesitate to contact practitioner for clarification. All quetsions answered to patients satisfaction. Patient verbalized understanding of diagnosis and treatments explained. To call sooner prior to next visit it any questions/concerns arise. 09/09/2025 Encounter for screening for cardiovascular disorders (ICD-10 - Z13.6) 54 year old M, [employer] at [employer], with 2 daughters # Family history of pancreatic cancer. Brother from metastatic pancreatic cancer, tested positive for the BRCA2 gene. # Migraine headache. Pt reports hx of young, followed by Dr. De La Cruz in the past. Started on Emgality with improvement, but having break thru headaches. Has appt with [facility]. On Topamax, with recurrent kidney stones. Discussed discontinuing, but reports well controlled headaches # HTN: Improved with increase of amlodipine to 10 mg #DM: Continue Jardiance. Currently on Mounarjo 7.5 mg ubscu weekly. Tolerating well. Reports ? Lump on back of neck that disappeared after discontinuing x 2 weeks. # Morbid obesity: Diet and exercise encouraged at length. See above Case discussed with collaborating physician Samuel Coreas who reviewed the assessment and plan. Chart, medications, labs, vital signs reviewed. Dictation was accomplished with the use of [employer]mi voice recognition software, prone to medical misidentifications and grammatical errors. This is unintentional and the practitioner does try to identify and correct these, but some could still be present. Please do not hesitate to contact practitioner for clarification. All quetsions answered to patients satisfaction. Patient verbalized understanding of diagnosis and treatments explained. To call sooner prior to next visit it any questions/concerns arise. 09/09/2025 Migraine with aura a nd without status migrainosus, not intractable (ICD-10 - G43.109) 54 year old [employer] at [facility] [employer], with 2 daughters # Family history of pancreatic cancer. Brother from metastatic pancreatic cancer, tested positive for the BRCA2 gene. # Migraine headache. Pt reports hx of young, followed by Dr. De La Cruz in the past. Started on Emgality with improvement, but having break thru headaches. Has appt with [facility]. On Topamax, with recurrent kidney stones. Discussed discontinuing, but reports well controlled headaches # HTN: Improved with increase of amlodipine to 10 mg #DM: Continue Jardiance. Currently on Mounarjo 7.5 mg ubscu weekly. Tolerating well. Reports ? Lump on back of neck that disappeared after discontinuing x 2 weeks. # Morbid obesity: Diet and exercise encouraged at length. See above Case discussed with collaborating physician Samuel Coreas who reviewed the assessment and plan. Chart, medications, labs, vital signs reviewed. Dictation was accomplished with the use of [employer]mi voice recognition software, prone to medical misidentifications and grammatical errors. This is unintentional and the practitioner does try to identify and correct these, but some could still be present. Please do not hesitate to contact practitioner for clarification. All quetsions answered to patients satisfaction. Patient verbalized understanding of diagnosis and treatments explained. To call sooner prior to next visit it any questions/concerns arise. 02/25/2025 Elevated blood pressure reading (ICD-10 - R03.0) # Right lower quadrant abdominal pain. High suspicion for appendicitis, given that he has localized McBurney's point tenderness. Concern for possible rupture, given length of time patient has been having discomfort. Patient is not febrile in the office however does have an elevated blood pressure. We discussed the etiologies of appendicitis, and the fact that he still has his appendix, with his symptoms, I am concerned. Patient was educated to go to the emergency room. Patient is agreeable. Call was placed over to [facility] ER for evaluation. #Back pain. Suspect this is secondary to #1. Patient also could have kidney stones given that he is on topiramate for chronic migraines. #Elevated blood pressure. Patient is on antihypertensive however I do believe pain is contributing to elevated blood pressure reading today. Case discussed with collaborating physician Sondra Coreas who reviewed the assessment and plan. Chart, medications, labs, vital signs reviewed. Dictation was accomplished with the use of [employer]mi voice recognition software, prone to medical misidentifications and grammatical errors. This is unintentional and the practitioner does try to identify and correct these, but some could still be present. Please do not hesitate to contact practitioner for clarification. All questions answered to patients satisfaction. Patient verbalized understanding of diagnosis and treatments explained. To call sooner prior to next visit it any questions/concerns arise. 09/09/2025 Essential (primary) hypertension (ICD-10 - I10) 54 year old M, [employer] ([employer]) at [facility] [employer], with 2 daughters # Family history of pancreatic cancer. Brother from metastatic pancreatic cancer, tested positive for the BRCA2 gene. # Migraine headache. Pt reports hx of migarines, followed by Dr. De La Cruz in the past. Started on Emgality with improvement, but having break thru headaches. Has appt with [facility]. On Topamax, with recurrent kidney stones. Discussed discontinuing, but reports well controlled headaches # HTN: Improved with increase of amlodipine to 10 mg #DM: Continue Jardiance. Currently on Mounarjo 7.5 mg ubscu weekly. Tolerating well. Reports ? Lump on back of neck that disappeared after discontinuing x 2 weeks. # Morbid obesity: Diet and exercise encouraged at length. See above Case discussed with collaborating physician Samuel Coreas who reviewed the assessment and plan. Chart, medications, labs, vital signs reviewed. Dictation was accomplished with the use of [employer]mi voice recognition software, prone to medical misidentifications and grammatical errors. This is unintentional and the practitioner does try to identify and correct these, but some could still be present. Please do not hesitate to contact practitioner for clarification. All quetsions answered to patients satisfaction. Patient verbalized understanding of diagnosis and treatments explained. To call sooner prior to next visit it any questions/concerns arise. 05/31/2025 Essential (primary) hypertension (ICD-10 - I10) 54 year old M, [employer] ([employer]) at [facility] [employer], with 2 daughters # Migraine headache. Pt reports hx of migarines, followed by Dr. De La Cruz in the past. Started on Emgality with improvement, but having break thru headaches. Has appt with [facility]. On Topamax, with recurrent kidney stones. Discussed discontinuing, but reports well controlled headaches # HTN: Improved with increase of amlodipine to 10 mg #DM: Continue Jardiance. Currently on Mounarjo 7.5 mg ubscu weekly. Tolerating well. Reports ? Lump on back of neck that disappeared after discontinuing x 2 weeks. # Morbid obesity: Diet and exercise encouraged at length. See above Case discussed with collaborating physician Samuel Coreas who reviewed the assessment and plan. Chart, medications, labs, vital signs reviewed. Dictation was accomplished with the use of [employer] voice recognition software, prone to medical misidentifications and grammatical errors. This is unintentional and the practitioner does try to identify and correct these, but some could still be present. Please do not hesitate to contact practitioner for clarification. All quetsions answered to patients satisfaction. Patient verbalized understanding of diagnosis and treatments explained. To call sooner prior to next visit it any questions/concerns arise. 03/29/2025 Migraine with aura a nd without status migrainosus, not intractable (ICD-10 - G43.109) # Electrocution. Patient sustained an electrocution on 03/22/2025. Patient did have overall normal labs, with residual pain in his right median nerve distribution. Patient reports this is gradually gotten better over the past week. He reports somewhat increased pain at night. We discussed options including short-term gabapentin to relax the nerves. We discussed that this can take up to 6 months to a year to fully regain neurologic function, as well as sensation back in this area. Patient verbalizes understanding. Patient reports ice packs have been helping in the discomfort of the area. #Nephrolithiasis. Patient has a remote history of nephrolithiasis back in his 30s. Patient states that he has not had kidney stones in quite some time, with no doses of Topamax changed, increased or decreased. We discussed that Topamax does carry the risk of kidney stones. Patient reports headaches have been exquisitely controlled, therefore does not want a change at this time. We discussed that if recurrent kidney stones happen again, we will have to trial him off of Topamax and lower the dose and eventually taper off. Patient verbalized understanding. # Migraines: Been well-controlled at this time with Emgality, Topamax and amitriptyline. Case discussed with collaborating physician Sondra Coreas who reviewed the assessment and plan. Chart, medications, labs, vital signs reviewed. Dictation was accomplished with the use of [employer] voice recognition software, prone to medical misidentifications and grammatical errors. This is unintentional and the practitioner does try to identify and correct these, but some could still be present. Please do not hesitate to contact practitioner for clarification. All questions answered to patients satisfaction. Patient verbalized understanding of diagnosis and treatments explained. To call sooner prior to next visit it any questions/concerns arise. 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 Complement levels normal. Suspect due to soap, pt limited. Has epi pen # Migraine headache. Pt reports hx of migarines, followed by Dr. De La Cruz in the past. Started on Emgality with improvement, but having break thru headaches. Has appt with [facility] # Stress. dx of breast cancer 2 months ago. Pt adjusting poorly to diagnosis. # HTN: Improved with increase of amlodipine to 10 mg #DM: Continue Jardiance. Was on Ozempic, A1C in office increased from 7.1 to 7.3. Due to GI upset, will trial Mounjaro. PA sent for 7.5 mg subcu weekly. # Morbid obesity: Diet and exercise encouraged at length. See above Case discussed with collaborating physician Samuel Coreas who reviewed the assessment and plan. Chart, medications, labs, vital signs reviewed. Dictation was accomplished with the use of [employer]mi voice recognition software, prone to medical misidentifications and grammatical errors. This is unintentional and the practitioner does try to identify and correct these, but some could still be present. Please do not hesitate to contact practitioner for clarification. All quetsions answered to patients satisfaction. Patient verbalized understanding of diagnosis and treatments explained. To call sooner prior to next visit it any questions/concerns arise. 05/31/2025 Encounter for examination of blood pressure without abnormal findings (ICD-10 - Z01.30) 54 year old M, [employer] ([employer]) at [facility], with 2 daughters # Migraine headache. Pt reports hx of migarines, followed by Dr. De La Cruz in the past. Started on Emgality with improvement, but having break thru headaches. Has appt with [facility]. On Topamax, with recurrent kidney stones. Discussed discontinuing, but reports well controlled headaches # HTN: Improved with increase of amlodipine to 10 mg #DM: Continue Jardiance. Currently on Mounarjo 7.5 mg ubscu weekly. Tolerating well. Reports ? Lump on back of neck that disappeared after discontinuing x 2 weeks. # Morbid obesity: Diet and exercise encouraged at length. See above Case discussed with collaborating physician Samuel Coreas who reviewed the assessment and plan. Chart, medications, labs, vital signs reviewed. Dictation was accomplished with the use of [employer]mi voice recognition software, prone to medical misidentifications and grammatical errors. This is unintentional and the practitioner does try to identify and correct these, but some could still be present. Please do not hesitate to contact practitioner for clarification. All quetsions answered to patients satisfaction. Patient verbalized understanding of diagnosis and treatments explained. To call sooner prior to next visit it any questions/concerns arise. 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 Brother from metastatic pancreatic cancer, tested positive for the BRCA2 gene. # Migraine headache. Pt reports hx of young, followed by Dr. De La Cruz in the past. Started on Emgality with improvement, but having break thru headaches. Has appt with [facility]. On Topamax, with recurrent kidney stones. Discussed discontinuing, but reports well controlled headaches # HTN: Improved with increase of amlodipine to 10 mg #DM: Continue Jardiance. Currently on Mounarjo 7.5 mg ubscu weekly. Tolerating well. Reports ? Lump on back of neck that disappeared after discontinuing x 2 weeks. # Morbid obesity: Diet and exercise encouraged at length. See above Case discussed with collaborating physician Samuel Coreas who reviewed the assessment and plan. Chart, medications, labs, vital signs reviewed. Dictation was accomplished with the use of [employer] voice recognition software, prone to medical misidentifications and grammatical errors. This is unintentional and the practitioner does try to identify and correct these, but some could still be present. Please do not hesitate to contact practitioner for clarification. All quetsions answered to patients satisfaction. Patient verbalized understanding of diagnosis and treatments explained. To call sooner prior to next visit it any questions/concerns arise. 09/09/2025 Acquired hyperlipoproteinemia (ICD-10 - E78.5) 54 year old M, [employer] ([employer]) [facility], with 2 daughters # Family history of pancreatic cancer. Brother from metastatic pancreatic cancer, tested positive for the BRCA2 gene. # Migraine headache. Pt reports hx of migarines, followed by Dr. De La Cruz in the past. Started on Emgality with improvement, but having break thru headaches. Has appt with [facility]. On Topamax, with recurrent kidney stones. Discussed discontinuing, but reports well controlled headaches # HTN: Improved with increase of amlodipine to 10 mg #DM: Continue Jardiance. Currently on Mounarjo 7.5 mg ubscu weekly. Tolerating well. Reports ? Lump on back of neck that disappeared after discontinuing x 2 weeks. # Morbid obesity: Diet and exercise encouraged at length. See above Case discussed with collaborating physician Samuel Coreas who reviewed the assessment and plan. Chart, medications, labs, vital signs reviewed. Dictation was accomplished with the use of Qianmi voice recognition software, prone to medical misidentifications and grammatical errors. This is unintentional and the practitioner does try to identify and correct these, but some could still be present. Please do not hesitate to contact practitioner for clarification. All quetsions answered to patients satisfaction. Patient verbalized understanding of diagnosis and treatments explained. To call sooner prior to next visit it any questions/concerns arise. 05/31/2025 Acquired hyperlipoproteinemia (ICD-10 - E78.5) 54 year old M, [employer], with 2 daughters # Migraine headache. Pt reports hx of migarines, followed by Dr. De La Cruz in the past. Started on Emgality with improvement, but having break thru headaches. Has appt with [facility]. On Topamax, with recurrent kidney stones. Discussed discontinuing, but reports well controlled headaches # HTN: Improved with increase of amlodipine to 10 mg #DM: Continue Jardiance. Currently on Mounarjo 7.5 mg ubscu weekly. Tolerating well. Reports ? Lump on back of neck that disappeared after discontinuing x 2 weeks. # Morbid obesity: Diet and exercise encouraged at length. See above Case discussed with collaborating physician Samuel Coreas who reviewed the assessment and plan. Chart, medications, labs, vital signs reviewed. Dictation was accomplished with the use of Qianmi voice recognition software, prone to medical misidentifications and grammatical errors. This is unintentional and the practitioner does try to identify and correct these, but some could still be present. Please do not hesitate to contact practitioner for clarification. All quetsions answered to patients satisfaction. Patient verbalized understanding of diagnosis and treatments explained. To call sooner prior to next visit it any questions/concerns arise. Plan Of Treatment Pending Test Test Name Order Date C1 Esterase Inhibitor, Func 09/12/2022 Microalb/Creat Ratio, Randm Ur HEMOGLOBIN A1C 05/28/2021 CA 19-9 08/12/2025 LIPID PANEL, STANDARD 05/31/2025 LIPID PANEL, STANDARD 04/26/2022 LIPID PANEL, STANDARD 06/21/2024 COMPREHENSIVE METABOLIC PANEL 06/21/2024 COMPREHENSIVE METABOLIC PANEL 04/26/2022 COMPREHENSIVE METABOLIC PANEL 05/31/2025 COMPREHENSIVE METABOLIC PANEL 08/12/2025 CBC (INCLUDES DIFF/PLT) 05/31/2025 CBC (INCLUDES DIFF/PLT) 06/21/2024 CBC (INCLUDES DIFF/PLT) 04/26/2022 URINALYSIS, COMPLETE 04/26/2022 URINALYSIS, COMPLETE 06/21/2024 URINALYSIS, COMPLETE 05/31/2025 HEMOGLOBIN A1c 05/31/2025 HEMOGLOBIN A1c 06/21/2024 HEMOGLOBIN A1c 04/26/2022 HEMOGLOBIN A1c 07/07/2023 LIPASE 08/12/2025 AMYLASE 08/12/2025 VITAMIN B12 05/31/2025 VITAMIN B12 06/21/2024 PSA (FREE AND TOTAL) 06/21/2024 PSA (FREE AND TOTAL) 05/31/2025 TSH 06/21/2024 VITAMIN D,25-OH,TOTAL,IA 06/21/2024 C4A LEVEL 09/12/2022 TSH+T4F+T3Free 05/31/2025 PPC Hemoglobin A1C 05/31/2025 Next Appt Details Provider Name:ANDRAE YANEZ, 12/06/2025 08:15:00 AM, [address], [place], [address], Insurance Providers Payer Name Payer Address Payer Phone Subscriber Number Group Number Insured Name Patient Relationship to Insured Coverage Start Date Coverage End Date [facility] [address] [place] [address] [id number] BABATUNDE QUEZADA Self - patient is the insured Medications Administered Medication Instructions Date of Administration Dosage Notes MICC B12 INJECTION 01/19/2021 1 MICC B12 INJECTION 02/02/2021 1 MICC B12 INJECTION 03/05/2021 1 MICC B12 INJECTION 03/19/2021 1 Pt kat erated well MICC b-12 inj MICC B12 INJECTION 05/01/2021 1 MICC B12 INJECTION 05/28/2021 1 MICC B12 INJECTION 06/28/2021 Lot # [id number] MICC B12 INJECTION 08/02/2021 lot # [id number] MICC B12 INJECTION 09/10/2021 lot # [id number] MICC B12 INJECTION 10/12/2021 lot # [id number] MICC B12 INJECTION 12/25/2021 lot # [id number] Medical (General) History Medical History History ICD Code Morbid obesity E66.01 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
--- OUTSIDE RECORDS SUMMARY | 2025-09-21 19:16 | XMS_ITS | Clinical Summary ---
Author Organization [facility] Address [address] [place], [place] [id number] Care Team Providers Care Vortex Operator Name Role Phone Sandor Casillas MD Primary Care Provider [phone] Immunizations Name Administration Dates Next Due Covid-19 (Pfizer) Dilution Required 01/08/2021,0 12/13/2020 Social History Tobacco Use Types Packs/Day Years Used Date Smoking Tobacco: Never Assessed Sex and Gender Information Value Date Recorded Sex Assigned at Male 12/13/2020 12:56 PM EST Gender Identity Not on file Sexual Orientation Not on file Plan of Treatment Health Maintenance Due Date Last Done Comments Hepatitis B Vaccines (1 of 3 - 3-dose series) 1970 Hepatitis C Screening 1970 Depression Screening 1982 Preventative Health Evaluation 1988 DTap / Tdap / Td (1 - Tdap) 1989 Colon Cancer Screening (Colonoscopy) 2015 Shingrix-Zoster Vaccine (1 o f 2) 2020 COVID-19 Vaccine (3 - 2024-2 6 season) 2025 01/08/2021, 12/13/2020 Influenza Vaccine (#1) 2025 Pneumococcal Vaccine Aged Out No long er eligible based on patient's age to complete this topic RSV Ped < 20 months Aged Out No longe r eligible based on patient's age to complete this topic Care Teams Vortex Operator Relationship Specialty Start Date End Date Sandor Casillas MD [address] [place] [address] PCP - General Internal Medicine 01/08/21
--- OUTSIDE RECORDS SUMMARY | 2025-09-21 19:16 | XMS_ITS | Patient Health Record ---
Author Organization [facility] Address [address] [place] [id number] Care Team Providers Care Wool Carder Name Role Phone Sandor Casillas Primary Care Provider Jeremi Cornejo Unavailable [phone] Allergies Allergen (clinical drug ingredient) Drug/Non Drug Allergy documented on EMR Reaction Allergy Type Onset Date Status Penicillin Unknown Drug Allergy Active Reason For Referral No Information Medications Medication SIG (Take, Route, Fr equency, Duration) Notes Start Date End Date Status Clindamycin HCl 300 MG Orally Active Lisinopril Active Social History Tobacco use other than smoking: Question Answer Notes Are you an other tobacco user? 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.73) Active confirmed Problem Plantar fasciitis (842910363) Plantar Fasciitis (728.71) Active confirmed Plan Of Treatment No Information Insurance Providers Payer Name Payer Address Payer Phone Subscriber Number Group Number Insured Name Patient Relationship to Insured Coverage Start Date Coverage End Date [facility] [address] [place] [address] [id number] Polo Ilan Self - patient is the insured Medical (General) History Medical History History ICD Code Arthritis Back pain Broken bones High blood pressure Chicken pox Joint implants/screws Surgical History Surgery Date(Month/Year) broken collar bone 1977 left knee repair 1993 & 1994 Hospitalization History Reason Date(Month/Year) [facility] 07/18/14 [facility] 07/20/14
== END 2025-09-21 15:49 | disposition home or self-care (01) ==
LOC: HO.HSM 14:52
PROVIDERS: PCP Internal Medicine; Referring Provider Internal Medicine; Visit Provider Registered Nurse
DX: G43.009 Migraine without aura, not intractable, without status migrainosus (principal); F07.81 Postconcussional syndrome; G44.309 Post-traumatic headache, unspecified, not intractable
CPT/HCPCS: 99214

== ENCOUNTER 2025-10-14 11:49 | Outpatient (AMB) | payer OTHER, SELFPAY ==
--- NOTE | 2025-10-14 11:54 | MHC.OFFVIS ---
Vital Signs 10/14/25 11:55 Height 5 ft 10 in Weight 345 lb BMI 49.5 BP 120/74 Blood Pressure Location Rt brachial Position Sitting Respiration 16 Pulse 74 Pulse Source Pulse Oximeter Pulse Oximetry (%) 98 Oxygen Delivery Method Room Air Intake Visit Reasons: 1m Vacuum Applicator Operator Required: No Allergies lisinopril Allergy (Unknown, Verified 10/14/25 11:59) Unknown HPI Comments Details: Ilan is a 55-year-old male patient who follows in the clinic for headache. I personally saw him for the 1st time on 09/21/2025 at which time he explained that he had a head injury approximately 6 years ago after tripping on a box leaving his house. He fell forward hitting his head on a basketball pole and then hit his head on cement. He denies loss of consciousness at the time though after the event had difficulty standing and imbalance. He went to the emergency room for evaluation in the overall impression by the provider who saw him was that he had a concussion. He was out of work for approximately 3 months after the event and continued to have significant light and sound sensitivity as well as dizziness with occasional vomiting. Prior to his fall about 6 years ago, he did not have any headaches. He had noted that he has had several concussions over the years even prior to this. He experiences some forgetfulness and cognitive slowing and he relies on notes heavily. He also was experiencing some mood changes especially when his headaches are more severe noted that he is very irritable and becomes very easily agitated because of his pain. He reported cognitive slowing and difficulty with concentrating especially at work. He has been on topiramate 100 mg twice daily for many years and has also been taking amitriptyline 100 mg nightly for quite some time as well. He does note that without the amitriptyline he has significant difficulty sleeping. He does have a long history of insomnia. He also has a history of VAL. He was diagnosed with a VAL at approximately age 18. He has been getting his CPAP equipment on [email or web address] and has not had any formal sleep study since approximately age 18. He drinks plenty of water and avoids alcohol or other substances. He does not smoke tobacco. At the time of the last visit he reported headaches weekly lasting 4-6hours starting with neck pain and then escalating into pain in his fontal region. His pain is archie, dull, aching, and throbbing and is associated with nausea, light, and sound sensitivity. Headaches often arise when he is very busy at work. He had seen a rediction in his headaches by about 75% after starting on Emgality that was prescribed through primary care. Our goal at his last visit was to address his polypharmacy and optimize his headache regimen. The plan was to taper him slowly the topiramate was reducing by 50 mg in the. Other medications remain the same. He tells me today that due to some difficulty getting the smaller area of the pharmacy for his topiramate, he ended up attempting to cut the pills which was not successful. Eventually, taper down to just taking topiramate 100 mg at bedtime and completely eliminated the daytime dose. Since then, he has noticed significant improvements in his mood and cognition during the day. He is no longer feeling extremely foggy and is very happy with the results of this. He has however unfortunately seen an increase in his headaches especially this week though does note that his work has been particularly stressful have sleep has been poor. He continues on amitriptyline 100 mg at night, topiramate 100 mg nightly, and Emgality injections. Past workup: CT brain -normal EEG 2023- normal EEG 2022- Mild bilateral sharp theta discharges Review of Systems Const All systems reviewed & are unremarkable except as noted in HPI and below Physical Exam Vital Signs: Last Vital Signs Pulse 74 10/14/25 11:55 Resp 16 10/14/25 11:55 BP 120/74 10/14/25 11:55 Pulse Ox 98 10/14/25 11:55 Oxygen Delivery Method Room Air 10/14/25 11:55 BMI result Body Mass Index 49.5 Const General: cooperative, healthy appearing, comfortable and no acute distress Nutritional Appearance: well nourished Orientation/consciousness: patient oriented x3 Limitations: no limitations HEENT Head: Yes normal to inspection and Yes normocephalic Eyes General: appearance normal, both eyes and all related structures Visual Fox: normal visual fox by confrontation Alignment and Position: alignment normal Periorbital: periorbital findings normal Eyelids: Yes eyelids normal Conjunctivae: conjunctivae normal Sclerae: sclerae normal Neck Neck: Yes normal visual inspection and Yes full ROM General: Yes no CVA tenderness Back/Spine/Pelvis Other: Bilateral trapezius muscle tightening without any obvious trigger points. Back: no CVA tenderness Cervical Spine: normal cervical lordosis Thoracic/Lumbar Spine: thoracic and lumbar spine normal to inspection Neuro General: patient oriented x3 Cranial nerves: Yes CN's II-XII intact bilaterally Cognition (Neuro): normal cognition Gait exam (Neuro): Normal gait present Motor exam (neuro): no tremor noted Romberg Test: Negative Pupils: Normal pupillary reactivity/response: bilateral Psych Appearance: grossly normal Mental Status: mental status grossly normal Speech and movement: Normal speech and movement present and Clear speech present Affect: normal affect Attitude: cooperative Thought process: Normal thought process present Thought content: Normal thought content present Insight: Good insight present (Psych) Judgement: Good judgement present (Psych) Assessment & Plan Assessment & Plan (1) Migraine without aura and without status migrainosus, not intractable: Code(s): G43.009 - Migraine without aura, not intractable, without status migrainosus Category: Medical (2) Post-concussion headache: Code(s): G44.309 - Post-traumatic headache, unspecified, not intractable Category: Medical Plan Ilan is a 55-year-old male patient who follows in the clinic for headache. He had experienced a postconcussive headache after which she was placed on medications that he has been utilizing long-term. He has been experiencing some side effects including mood changes and cognitive slowing which improved after discontinuing his daytime dose of topiramate. He had overall improvement in his headaches after initiation of Emgality. I am hoping to optimize his medications and such that we reduce has side effects, optimize his sleep, and optimize was headache control. For now, his cognitive slowing and mood changes are improved after reducing the topiramate dose but headaches have increased slightly. I will add magnesium oxide 400 mg nightly and at this he has no improvement, could consider changing Emgality to another injectable or other therapies. -Continue Emgality -Continue Amitriptyline 100mg nightly -Continue topiramate 100mg nightly for now -Add magnesium oxide 400mg nightly -At next visit, consider further medication adjustments as needed -May also consider repeat sleep study and PT -Follow-up in 2 months or sooner if needed Medications: New magnesium oxide 400 mg PO DAILY 90 tabs 3RF 90 days Coding Level of Care Code Est Pt Level 4 (71710) Diagnoses Migraine without aura and without status migrainosus, not intractable G43.009 Post-concussion headache G44.309
[2025-10-14 11:55] VITALS: BP 120/74; PULSE 74; RESP 16; O2SAT 98; BMI 49.5
--- OUTSIDE RECORDS SUMMARY | 2025-10-14 12:34 | XMS_ITS | Clinical Summary ---
Author Organization [facility] Address [address] [place] [phone] Phone Care Team Providers Care Bag Checker Name Role Phone Blossom Coreas MD Primary Care Provider [phone] Allergies Active Allergy Reactions Criticality Noted Date [...] patient's age to complete this topic Insurance [facility] Advance Directives Documents on File Type Date Recorded Patient Behavioral Sciences Instructor Expl anation Health Care Decision (hx) 11/30/2014 [...] (hx) 11/25/2014 AD SINCLAIR DIRECTIVE Care Teams Bag Checker Relationship Specialty Start Date End Date Blossom Coreas MD [address] [place] [address] [place] [address] [facility] - General 01/20/24
--- OUTSIDE RECORDS SUMMARY | 2025-10-14 12:35 | XMS_ITS | Patient Health Record ---
Author Organization [facility] [address] Address [address] [place] [address] Care Team Providers [employer] Name Role Phone SHOLA COREAS Unavailable [phone] RENATA ANDRAE Unavailable [phone] Allergies Allergen (clinical drug ingredient) Drug/Non Drug Allergy documented on EMR Reaction Allergy Type Onset Date Status lisinopril Lisinopril angioedema Drug Allergy Acti ve doxycycline Doxycycline rash Drug Allergy Act ravinder Results Component Value Reference Range Flag Notes B-TYPE NATRIURETIC PEPTIDE Reviewed date:03/23/2025 08:36:05 AM Interpretation: Performing Lab: Notes/Report: BNP 8 <=100 pcg/mL PSA Total+% Free-[id number] Reviewed date:02/22/2025 08:14:00 AM Interpretation: Performing Lab:[facility], [address] [place] [address], [place], Phone - [phone], Director - Mark Notes/Report: Prostate Specific Ag 3.0 0.0-4.0 ng/mL [facility]idan ECLIA methodology. . According to the [place] [employer], Serum PSA should decrease and [...] PSA, Free 0.67 N/A ng/mL Aidan ECLIA me thodology. % Free PSA 22.3 The table below lists the probability of prostate cancer for men with non-suspicious RM results and total PSA between 4 and 10 ng/mL, by patient age (Steffanie et al, HEATHER 1998, 279:1542). % Free PSA 50-64 yr 65-75 yr 0.00-10.00% 56% 55% 10.01-15.00% 24% 35% 15.01-20.00% 17% 23% 20.01-25.00% 10% 20% >25.00% 5% 9% Please note: Steffanie et al did not make specific recommendations regarding the use of percent free PSA for any other population of men. Comp. Metabolic Panel (14)-3 Reviewed date:08/29/2025 08:03:53 AM Interpretation: Performing Lab:[facility], [address] [facility], Phone - [phone], [facility] Notes/Report: Glucose 162 70-99 mg/dL H BUN 12 6-24 mg/dL Creatinine 1.16 0.76-1.27 mg/dL eGFR 74 >59 mL/min/1.73 BUN/Creatinine Ratio 10 9-20 Sodium 142 134-144 mmol/L Potassium 4.1 3.5-5.2 mmol/L Chloride 107 96-106 mmol/L H Carbon Dioxide, Total 22 20-29 mmol/L Calcium 9.1 8.7-10.2 mg/dL Protein, Total 6.5 6.0-8.5 g/dL Albumin 4.2 3.8-4.9 g/dL Globulin, Total 2.3 1.5-4.5 g/dL Bilirubin, Total 0.6 0.0-1.2 mg/dL Alkaline Phosphatase 117 47-123 IU/L AST (SGOT) 16 0-40 IU/L ALT (SGPT) 16 0-44 IU/L Comp. Metabolic Panel (14)- Reviewed date:02/22/2025 08:14:00 AM Interpretation: Performing Lab:[employer] [facility], [address] [facility], [place], Phone - [phone], Director - [facility] Notes/Report: Glucose 151 70-99 mg/dL H BUN 12 6-24 mg/dL Creatinine 1.14 0.76-1.27 [...] IU/L ALT (SGPT) 20 0-44 IU/L Lipid Panel-[id number] Reviewed date:02/22/2025 08:14:00 AM Interpretation: Performing Lab:[facility] Gutierrez [address] [place] [address], Phone - [phone], Director - Mark Notes/Report: Cholesterol, Total 122 100-199 mg/dL Triglycerides 71 0-149 mg/dL HDL Cholesterol 54 >39 mg/dL VLDL Cholesterol Basil 15 5-40 mg/dL LDL Chol Calc (NIH) 53 0-99 mg/dL Lipid Panel-[id number] Reviewed date:08/29/2025 08:04:03 AM Interpretation: Performing Lab:[facility] Gutierrez [address] [place] [address], Phone - [phone], Director - Mark Notes/Report: Cholesterol, Total 122 100-199 mg/dL Triglycerides 64 0-149 mg/dL HDL Cholesterol 57 >39 mg/dL VLDL Cholesterol Basil 14 5-40 mg/dL LDL Chol Calc (NIH) 51 0-99 mg/dL TSH+Free [id number] Reviewed date:08/29/2025 08:04:03 AM Interpretation: Performing Lab:[facility] [address] [place] [address], Phone - [phone], Director - Mark Notes/Report: TSH 0.976 0.450-4.500 uIU/mL T4,Free(Direct) 1.05 0.82-1.77 ng/dL Albumin/Creatinine Ratio,Uri ne-[id number] Reviewed date:08/29/2025 08:04:03 AM Interpretation: Performing Lab:[facility] Gutier[facility] [address] [place] [address], Phone - [phone], Director - Mark Notes/Report: Creatinine, Urine 86.3 Not Estab. mg/dL Albumin, Urine 8.5 Not Estab. ug/mL Alb/Creat Ratio 10 0-29 mg/g creat Normal: 0 - 29 Moderately increased: 30 - 300 Severely increased: >300 Vitamin D, 29-Niokcvm-[id number] Reviewed date:02/22/2025 08:12:34 AM Interpretation: Performing Lab:[facility], [address] [place] [address], Phone - [phone], Director - Mark Notes/Report: Vitamin D, 25-Hydroxy 21.1 30.0-100.0 ng/mL L Vitamin D deficiency has been defined by the [place] of [employer] and an Endocrine Society practice guideline as a level of serum 25-OH vitamin D less than 20 ng/mL (1,2). The Endocrine Society went on to further define vitamin D insufficiency as a level between 21 and 29 ng/mL (2). 1. IOM ([place] of Medicine). 2010. Dietary reference intakes for calcium and D. [place]: The National Academies Press. 2. Josseline MF, Oscar HERNÁNDEZ, Marifer CANO, et al. Evaluation, treatment, and prevention of vitamin D deficiency: an Endocrine Society clinical practice guideline. JCEM. 2010; 96(7):1911-30. Triiodothyronine (T3), Free- [id number] Reviewed date:08/29/2025 08:04:03 AM Interpretation: Performing Lab:[facility], [address] [place] [address], Phone - [phone], Director Luisana Flores Notes/Report: Triiodothyronine (T3), Free 3.1 2.0-4.4 pg/mL Prostate-Specific Ag-[id number] Reviewed date:08/29/2025 08:04:03 AM Interpretation: Performing Lab:[facility], [address] [facility], [place], Phone - [phone], Director Luisana Flores Notes/Report: Prostate Specific Ag 3.0 0.0-4.0 ng/mL Aidan ECLIA methodology. . According to the [place] [employer], Serum PSA should decrease and [...] absence of malignant disease. CBC With Differential/Platel et-[id number] Reviewed date:08/29/2025 08:04:03 AM Interpretation: Performing Lab:[facility], [address] [facility], Phone - [phone], Director - Mark Notes/Report: WBC 5.4 3.4-10.8 x10E3/uL RBC 5.21 [...] % Immature Grans (Abs) 0.0 0.0-0.1 x10E3/uL CBC With Differential/Platel et-[id number] Reviewed date:02/22/2025 08:12:44 AM Interpretation: Performing Lab:[facility], [address] [facility], Phone - [phone], Director - Mark Notes/Report: WBC 7.1 3.4-10.8 [...] % Immature Grans (Abs) 0.0 0.0-0.1 x10E3/uL TSH-[id number] Reviewed date:02/22/2025 08:14:00 AM Interpretation: Performing Lab:[facility] [place], [address] [place] [address], Phone - [phone], Director - [facility] Notes/Report: TSH 0.986 0.450-4.500 uIU/mL Urinalysis, Complete-[id number] Reviewed date:02/22/2025 08:14:00 AM Interpretation: Performing Lab:[facility] [place], [address] [place] [address], Phone - [phone], Director - [facility] Notes/Report: Specific [place] TNP Test not performed. Patient was unable to provide a self-collected specimen for the requested testing. The following test(s) were not performed: pH TNP Test not perfo rmed Protein TNP Test not perfo rmed Glucose TNP Test not perfo rmed Ketones TNP Test not perfo rmed Urinalysis, Complete-[id number] Reviewed date:02/23/2025 08:08:09 AM Interpretation: Performing Lab:[facility] [place], [address] [place] [address], Phone - [phone], Director - [facility] Notes/Report: Specific [place] 1.027 1.005-1.030 pH 6.5 5.0-7.5 Urine-Color Yellow Yellow Appearance Clear Clear WBC Esterase Negative Negative Protein Trace Negative/Trace Glucose 3+ Negative A Ketones Negative Negative Occult Blood 2+ Negative A Bilirubin Negative Negative Urobilinogen,Semi-Qn 1.0 0.2-1.0 mg/dL Nitrite, Urine Negative Negative Microscopic Examination See below: M icroscopic was indicated and was performed. WBC None seen 0 - 5 /hpf RBC >30 0 - 2 /hpf A Epithelial Cells (non renal) None seen 0 - 10 /hpf Casts None seen None seen /lpf Bacteria None seen None seen/Few Urinalysis, Complete-[id number] Reviewed date:08/29/2025 08:04:03 AM Interpretation: Performing Lab:[facility], Phone - [phone], Director - Mark Notes/Report: Specific [place] 1.029 1.005-1.030 pH 7.0 5.0-7.5 Urine-Color Yellow Yellow Appearance Clear Clear WBC Esterase Negative Negative Protein Trace Negative/Trace Glucose 3+ Negative A Ketones Negative Negative Occult Blood Negative Negative Bilirubin Negative Negative Urobilinogen,Semi-Qn 1.0 0.2-1.0 mg/dL Nitrite, Urine Negative Negative Microscopic Examination M icroscopic follows if indicated. Microscopic Examination See below: M icroscopic was indicated and was performed. WBC 0-5 0 - 5 /hpf RBC None seen 0 - 2 /hpf Epithelial Cells (non renal) None seen 0 - 10 /hpf Casts None seen None seen /lpf Bacteria None seen None seen/Few CA [id number] Reviewed date:08/29/2025 08:04:03 AM Interpretation: Performing Lab:[facility] [employer] [address], Phone - [phone], Director - Mark Notes/Report: CA 19-9 30 0-35 U/mL [facility] Electrochemiluminescence Immunoassay (ECLIA) . Values obtained with different assay methods or kits cannot be used interchangeably. Results cannot be interpreted as absolute evidence of the presence or absence of malignant disease. Vitamin [id number] Reviewed date:08/29/2025 08:04:03 AM Interpretation: [facility] [place], Phone - [phone], Director - Mark Notes/Report: Vitamin B12 048 868-8417 pg/mL Vitamin R55-107539 Reviewed date:02/22/2025 08:14:00 AM Interpretation: Performing Lab:[address], Phone - [phone], Director - Mark Notes/Report: Vitamin B12 472 570-8423 pg/mL Request Problem TNP Test not performed. Patient was unable to provide a self-collected specimen for the requested testing. The following test(s) were not performed: TEST: [id number] Urinalysis, Complete Hemoglobin R7e-[id number] Reviewed date:02/22/2025 08:12:39 AM Interpretation: Performing Lab:[address], Phone - [phone], Director Luisana Flores Notes/Report: Hemoglobin A1c 6.5 4.8-5.6 % H . Prediabetes: 5.7 - 6.4 Diabetes: >6.4 Glycemic control for adults with diabetes: <7.0 Hemoglobin A2a-[id number] Reviewed date:08/29/2025 08:04:03 AM Interpretation: Performing Lab:[facility], [address] [place] [address], Phone - [phone], Director - Mark Notes/Report: Hemoglobin A1c 7.7 4.8-5.6 % H . Prediabetes: 5.7 - 6.4 Diabetes: >6.4 Glycemic control for adults with diabetes: <7.0 Lipase-198630 Reviewed date:08/29/2025 08:04:03 AM Interpretation: Performing Lab:[address], Phone - [phone], - Mark Notes/Report: Lipase 22 13-78 U/L Amylase-003775 Reviewed date:08/29/2025 08:04:03 AM Interpretation: Performing Lab:[facility] [address] [place] [address], Phone - [phone], - Mark Notes/Report: Amylase 56 31-110 U/L EKG Reviewed date:09/09/2025 12:13:17 PM Interpretation: Performing Lab: Notes/Report: ECGDiastolicBP 72 ECGHr 68 ECGPRInterval 164 ECGPWaveAxis 46 ECGQRSDuration 86 ECGQrsWaveAxis 37 ECGQTcInterval 384 ECGQTInterval 370 ECGSystolicBP 130 ECGTWaveAxis 42 RR_DiastolicBP 0 RR_MaxRRInterval 0 RR_MeanHR 0 RR_MeanRRInterval 0 RR_MinRRInterval 0 RR_NumBeats 0 RR_NumNormalBeats 0 RR_SystolicBP 0 Reason For Referral No Information Medications Medication SIG (Take, Route, Frequency, Duration) Notes Start Date End Date Status Atorvastatin Calcium 40 MG Tablet 1 tablet Orally Once a day change from 20mg to 40mg Active EPINEPHrine 0.3 MG/0.3ML Solution Prefilled Syringe as directed for allergic reaction Injection as needed; Duration: 30 days 11/21/2021 Active Emgality 120 MG/ML Solution Auto-injector INJECT 1 ML INTO THE SKIN MONTHLY; Duration: 30 Active Topiramate 100 MG Tablet 1 tablet Orally twice a day Active Torsemide 20 MG Tablet TAKE 1 TABLET BY MOUTH EVERY DAY; Duration: 90 Active Jardiance 10 MG Tablet TAKE 1 TABLET BY MOUTH EVERY DAY; Duration: 90 Active Amitriptyline HCl 100 MG Tablet TAKE 1 TABLET BY MOUTH EVERY DAY AT BEDTIME; Duration: 90 Active amLODIPine Besylate 10 MG Tablet TAKE 1 TABLET BY MOUTH EVERY DAY; Duration: 90 Active Aspirin Low Dose 81 MG Tablet Delayed Release TAKE 1 TABLET BY MOUTH EVERY DAY; Duration: 90 Active Lotrimin Ultra 1 % Cream 1 application Externally Twice a day; Duration: 7 day(s) Active Doxycycline Hyclate 100 MG Tablet 1 tablet Orally every 12 hrs; Duration: 10 day(s) Active Cephalexin 750 MG Capsule 1 capsule Orally every 6 hrs; Duration: 7 days Active Mounjaro 7.5 MG/0.5ML Solution Auto-injector 7.5 mg Subcutaneous weekly; Duration: 30 days Active Social History Tobacco Use: Social History Observation Description Date Details (start date - stop date) Never Smoker NA - NA Social History Drugs/Alcohol: Social Info Question Answer Notes Drugs Have you used drugs other than those for medical reasons in the past 12 months? No Tobacco Use: Social Info Question Answer Notes Tobacco Use/Smoking Are you a nonsmoker Additional Details Category Social Info Options Details Drugs/Alcohol: Do you smoke marijuana? De nies Do you drink alcohol? No Section Notes: Tob: Never ETOH: Rare IT [...] Disorder due to type 2 diabetes mellitus (134067006) Type 2 diabetes mellitus with unspecified complications (E11.8) Active confirmed Problem Vitamin D deficiency (87455782) Vitamin D deficiency, unspecified (E55.9) Active confirmed Problem Morbid obesity (disorder) (534107138) Morbid (severe) obesity due to excess calories (E66.01) Active confirmed Problem Essential hypertension (95262397) Essential (primary) hypertension (I10) Active confirmed Problem Morbid obesity (636362201) Morbid obesity (E66.01) Active confirmed Problem Diverticulitis (25106368) Diverticulitis (K57.92) Active confirmed Problem Acquired hypothyroidism (165725815) Acquired hypothyroidism (E03.9) Active confirmed Problem Hyperlipoproteinemia (9561918) Acquired hyperlipoproteinemia (E78.5) Active confirmed Problem Adult health examination (050625685) Adult general medical exam (Z00.00) Active confirmed Problem Vitamin D deficiency (85223208) Vitamin D deficiency (E55.9) Active confirmed Problem Vitamin A deficiency (15478615) Vitamin A deficiency (E50.9) Active confirmed Problem Nephrolithiasis (11366728) Nephrolithiasis (N20.0) Active confirmed Problem Body mass index 40+ - morbidly obese (974357830) Body mass index [BMI] 50.0-59.9, adult (Z68.43) Active confirmed Problem Body mass index 30+ - obesity (finding) (246071639) Body mass index [BMI] 60.0-69.9, adult (Z68.44) Active confirmed Problem Migraine with aura (8147066) Migraine with aura and without status migrainosus, not intractable (G43.109) Active confirmed Problem Vitamin B>12< deficiency anaemia (34908921) Anemia due to vitamin B12 deficiency, unspecified B12 deficiency type (D51.9) Active confirmed Problem Stress (89671005) Stress (F43.9) Active confirm ed Problem Type II diabetes mellitus without complication (943056010) New onset type 2 diabetes mellitus (E11.9) Active confirmed Problem Ascending aorta dilatation (593726086) Ascending aorta dilatation (I77.810) Active confirmed Problem Abnormal metabolic state due to diabetes mellitus (949408552) Abnormal metabolic state due to diabetes mellitus (E11.9) Active confirmed Problem Elevated fasting lipid profile (373278590904) Elevated lipids (E78.5) Active confirmed Problem Screening for malignant neoplasm of prostate (290657484) Encounter for prostate cancer screening (Z12.5) Active confirmed Problem Hypothyroid (81492698) Hypothyroid (E03.9) Active confirmed Vital Signs Heart Rate 83 /min 09/09/2025 Oximetry 99 % 09/09/2025 Blood pressure diastolic 72 mm Hg 09/09/2025 Height 68 in 09/09/2025 Blood pressure systolic 130 mm Hg 09/09/2025 Weight 343.6 lbs 09/09/2025 BMI 52.24 kg/m2 09/09/2025 Encounters Encounter Location Date Provider Diagnosis [facility] [address] [place], [place] 11/26/2024 ANDRAE YANEZ Type 2 diabetes maurice itus with unspecified complications E11.8 ; Migraine with aura and without status migrainosus, not intractable G43.109 and Essential (primary) hypertension I10 [facility] [address] [place] [address] 02/25/2025 ANDRAE YANEZ Right lower quadrant abdominal pain R10.31 ; Back pain without radiation M54.9 and Elevated blood pressure reading R03.[address] 03/29/2025 ANDRAE YANEZ Electrocution, seque la T75.4XXS ; Nephrolithiasis N20.0 and Migraine with aura and without status migrainosus, not intractable G43.109 [facility] [address] [place] [address] 05/31/2025 ANDRAE YANEZ Type 2 diabetes maurice itus with unspecified complications E11.8 ; Migraine with aura and without status migrainosus, not intractable G43.109 ; Essential (primary) hypertension I10 ; Encounter for examination of blood pressure without abnormal findings Z01.30 and Acquired hyperlipoproteinemia E78.5 [facility] [address] [place] [address] 09/09/2025 ANDRAE YANEZ Encounter for screen ing for cardiovascular disorders Z13.6 ; Type 2 diabetes mellitus with unspecified complications E11.8 ; Migraine with aura and without status migrainosus, not intractable G43.109 ; Essential (primary) hypertension I10 ; Encounter for examination of blood pressure without abnormal findings Z01.30 and Acquired hyperlipoproteinemia E78.[address] [facility] [address] [place] [address] 11/26/2024 ANDRAE YANEZ [facility] [address] [place] [address] [place] [address] 08/01/2025 SHOLA COREAS [facility] [address] [place] [address] 08/12/2025 ANDRAE YANEZ Family history of pa ncreatic cancer Z80.[address] [facility] [address] [place] [address] 08/25/2025 ANDRAE YANEZ [facility] [address] [place] [address] 09/21/2025 ANDRAE YANEZ [facility] [address] [place] [address] 09/30/2025 ANDRAE YANEZ Assessments Encounter Date Diagnosis (ICD Code) Assessment Notes Treatment Notes Treatment Clinical Notes Section Notes 11/26/2024 Type 2 diabetes mellitus with unspecified complications (ICD-10 - E11.8) 54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 Call was placed over to [facility] ER for evaluation. #Back pain. Suspect [...] Dictation was accomplished with the use of Endpoint [employer] voice recognition software, prone to medical misidentifications [...] is agreeable. Call was placed over to [facility] ER for evaluation. #Back pain. Suspect [...] Dictation was accomplished with the use of Vapore voice recognition software, prone to medical misidentifications [...] visit it any questions/concerns arise. 03/29/2025 Electrocution, sequdominique la (ICD-10 - T75.4XXS) # Electrocution. Patient [...] Dictation was accomplished with the use of Vapore voice recognition software, prone to medical misidentifications [...] Dictation was accomplished with the use of Vapore voice recognition software, prone to medical misidentifications [...] (ICD-10 - E11.8) 54 year old M, [employer] at [facility], with 2 daughters # Migraine headache. 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 Brother from metastatic pancreatic cancer, tested positive for the BRCA2 gene. # Migraine headache. Pt reports hx of migedward, followed by Dr. De La Cruz in [...] Dictation was accomplished with the use of Vapore voice recognition software, prone to medical misidentifications [...] is agreeable. Call was placed over to [facility] ER for evaluation. #Back pain. 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 [...] Dictation was accomplished with the use of Vapore voice recognition software, prone to medical misidentifications [...] (ICD-10 - Z01.30) 54 year old M, [facility], with 2 daughters # Family [...] Dictation was accomplished with the use of Vapore voice recognition software, prone to medical misidentifications [...] (ICD-10 - E78.5) 54 year old M, [employer] [facility], with 2 daughters # Family [...] Dictation was accomplished with the use of Vapore voice recognition software, prone to medical misidentifications [...] (ICD-10 - E78.5) 54 year old M, [employer] [facility], with 2 daughters # Migraine [...] Dictation was accomplished with the use of Vapore voice recognition software, prone to medical misidentifications [...] YANEZ, 12/06/2025 08:15:00 AM, [address], [place], [address], Insurance Providers Payer Name Payer Address Payer Phone Subscriber Number Group Number Insured Name Patient Relationship to Insured Coverage Start Date Coverage End Date [facility] [address] [place] [address] [id number] BABATUNDE QUEZADA Self - patient is the insured Medications Administered Medication Instructions Date of Administration Dosage Notes MICC B12 INJECTION 01/19/2021 1 MICC B12 INJECTION 02/02/2021 1 MICC B12 INJECTION 03/05/2021 1 MICC B12 INJECTION 03/19/2021 1 Pt kat erated well MICC b-12 inj MICC B12 INJECTION 05/01/2021 1 MICC B12 INJECTION 05/28/2021 1 MICC B12 INJECTION 06/28/2021 Lot # [id number] MICC B12 INJECTION 08/02/2021 lot # [id number] MICC B12 INJECTION 09/10/2021 lot # [id number] MICC B12 INJECTION 10/12/2021 lot # [id number] [...]
--- OUTSIDE RECORDS SUMMARY | 2025-10-14 12:35 | XMS_ITS | Patient Health Record ---
Author Organization [facility] Address [address] [place] [id number] Care Team Providers Care Lab Aide Name Role Phone Sandor Casillas Primary Care Provider Jeremi Cornejo Unavailable [phone] Allergies Allergen (clinical drug ingredient) Drug/Non Drug [...] W/U Status Risk Notes Problem Calcaneal spur (64286315) Calcaneal spur (726.73) Active confirmed Problem Plantar fasciitis (175513416) Plantar Fasciitis (728.71) Active confirmed Plan Of Treatment No Information Insurance Providers Payer Name Payer Address Payer Phone Subscriber Number Group Number Insured Name Patient Relationship to Insured Coverage Start Date Coverage End Date [facility] [address] [place] [phone] [id number] Polo Ilan Self - patient is the insured Medical (General) History Medical History History ICD Code Arthritis Back pain Broken bones High blood pressure Chicken pox Joint implants/screws Surgical History Surgery Date(Month/Year) broken collar bone 1977 left knee repair 1993 & 1994 Hospitalization History Reason Date(Month/Year) [facility] ER 07/18/14 [facility] ER 07/20/14
--- OUTSIDE RECORDS SUMMARY | 2025-10-14 12:35 | XMS_ITS | Clinical Summary ---
Author Organization [facility] Address [address] [place], [place] [id number] Care Team Providers Care Inventory Control Associate Name Role Phone Sandor Caisllas MD Primary Care Provider [phone] Immunizations Name Administration Dates Next Due Covid-19 [...] age to complete this topic Care Teams Inventory Control Associate Relationship Specialty Start Date End Date Sandor Casillas MD [address] [place] [address] PCP - General Internal Medicine 01/08/21
== END 2025-10-14 12:14 | disposition home or self-care (01) ==
LOC: HO.HSM 11:49
PROVIDERS: PCP Internal Medicine; Visit Provider Nurse Practitioner
DX: G43.009 Migraine without aura, not intractable, without status migrainosus (principal); G44.309 Post-traumatic headache, unspecified, not intractable
CPT/HCPCS: 99214